=== PATIENT | female | born 1950 | race African-American/Black ===

== ENCOUNTER 2018-06-22 09:24 | Outpatient (CLI) | payer OTHER | END 2018-06-22 09:25 | disposition home or self-care (01) | LOC: DTY/OP 09:24 | PROVIDERS: ATTEND Surgery | DX: I10 Essential (primary) hypertension (principal) | CPT/HCPCS: 97802 ==

== ENCOUNTER 2018-08-24 06:42 | Outpatient (CLI) | payer MEDICARE ==
[2018-08-24 11:30] LABS: Hemoglobin A1c 5.6 % (4.0-6.0)
--- NOTE | 2018-08-24 11:40 | RAD ---
PA AND LATERAL CHEST: History: Pre op. Comparison: 04-18-03 FINDINGS: Heart size is borderline. There are some arthrosclerotic changes of the aorta. The lungs are clear of infiltrate. Surgical clips are seen along the right chest wall. IMPRESSION: No active intrathoracic disease. POS: [facility]
[2018-08-24 11:41] LABS: ALT (SGPT) 14 U/L (8-55); AST (SGOT) 24 U/L (5-34); Albumin 4.3 g/dL (3.4-4.8); Alkaline Phosphatase 78 U/L (40-150); Anion Gap 17 mmol/L (10-20); BUN (Urea Nitrogen) 25 mg/dL (9.8-20.1); Bilirubin, Direct 0.2 mg/dL (0.1-0.3); Bilirubin, Total 0.3 mg/dL (0.2-1.2); Calc. Creatinine Clearance 0 mL/min (70-130); Calcium 10.4 mg/dL (7.8-10.44); Carbon Dioxide 21 mmol/L (23-31); Chloride 108 mmol/L (98-107); Estimated GFR-MDRD 50; Globulin 4.5 g/dL (2.4-3.5); Glucose 93 mg/dL (80-115); Potassium 3.7 mmol/L (3.5-5.1); Protein, Total 8.8 g/dL (6.0-8.3); Sodium 142 mmol/L (136-145)
[2018-08-24 12:24] LABS: #Basophils 0.1 thou/uL (0.0-0.2); #Eosinphils 0.3 thou/uL (0.0-0.7); #Monocytes 0.6 thou/uL (0.11-0.59); #Neutrophils 4.7 thou/uL (1.40-6.50); %Basophils 0.7 % (0.0-1.0); %Eosinophils 3.9 % (0.0-10.0); %Lymphocytes 25.9 % (21.0-51.0); %Monocytes 8.2 % (0.0-10.0); %Neutrophils 61.4 % (42.0-75.0); Hemoglobin 10.9 g/dL (12.0-16.0); MDiff Complete? YES; Mean Corpuscular HGB CONC 32.5 g/dL (32.0-36.0); Mean Corpuscular Hemoglobin 22.9 pg (27.0-31.0); Mean Corpuscular Volume 70.6 fL (78.0-98.0); Mean Platelet Volume 11.3 fL (7.4-10.4); Microcytosis MODERATE=15-30 cells (100X) (0-5/hpf); Platelet Count 331 thou/uL (130-400); Platelet Morphology Comment Appears Adequate; Polychromasia SLIGHT = 2-3 cells (100X) (0-2/hpf); RBC Distribution Width 18.2 % (11.5-14.5); Red Blood Cell (RBC) Count 4.73 mill/uL (4.20-5.40); White Blood Cell (WBC) Count 7.6 thou/uL (4.8-10.8)
--- NOTE | 2018-08-24 21:38 | EKG ---
Test Reason : Blood Pressure : / mmHG Vent. Rate : 080 BPM Atrial Rate : 080 BPM P-R Int : 162 ms QRS Dur : 090 ms QT Int : 392 ms P-R-T Axes : 052 005 033 degrees QTc Int : 452 ms Normal sinus rhythm Nonspecific T wave abnormality Abnormal ECG When compared with ECG of 19-APR-2003 07:29, Borderline criteria for Inferior infarct are no longer Present Confirmed by MARCELINO PANDYA, SMitch ([id number]) on 08/24/2018 9:37:47 PM Referred By: SHAVON Confirmed By:DR. Diony BENSON MD
== END 2018-08-24 06:43 | disposition home or self-care (01) ==
LOC: LABBT 06:42
PROVIDERS: ATTEND Surgery
DX: Z01.818 Encounter for other preprocedural examination (principal); E66.01 Morbid (severe) obesity due to excess calories
CPT/HCPCS: 71046; 80053; 80076; 83036; 85025; 93005; 93010

== ENCOUNTER 2018-08-24 09:30 | Inpatient (IN) | payer MEDICARE ==
[2018-08-24 10:11] VITALS: BMI 48.4
[2018-09-01] MEDS ORDERED: Heparin 5,000 UNITS/ML VIAL ONE (06:14)
[2018-09-01] MEDS ORDERED: CEFAZOLIN 2 GM/50 ML BAG ONE (06:14)
[2018-09-01] MEDS ORDERED: Fentanyl 250 MCG/5 ML VIAL ONE (06:30)
[2018-09-01] MEDS ORDERED: Bupivacaine HCl 0.5%/Epinephrine 1:200,000/PF 30 ml Vial ONE (06:59)
[2018-09-01] MEDS ORDERED: SUGAMMADEX SODIUM 500 MG/5 ML VIAL ONE (08:40)
[2018-09-01] MEDS ORDERED: Promethazine HCl 25 MG/ML VIAL IM PRN ×3 (08:53→09:27)
[2018-09-01] MEDS ORDERED: hydrALAZINE 20 MG/ML VIAL SLOW IVP PRN (08:53)
[2018-09-01] MEDS ORDERED: Insulin Regular 300 UNITS/3 ML VIAL SC PRN (08:53)
[2018-09-01] MEDS ORDERED: Ondansetron PF 4 MG/2 ML Vial IVP PRN (08:53)
[2018-09-01] MEDS ORDERED: Dextrose 50% Abboject 50 ML SYRINGE SLOW IVP PRN (08:53)
[2018-09-01] MEDS ORDERED: Hydrocodone-Acetamin 15 ML UDCUP PO PRN (08:53)
[2018-09-01] MEDS ORDERED: Dextrose 5% in Water 1,000 ML IV PRN (08:53)
[2018-09-01] MEDS ORDERED: diphenhydrAMINE 50 MG/ML VIAL IVP PRN ×2 (08:53→09:27)
[2018-09-01] MEDS ORDERED: CEFAZOLIN/Water 2 GM/20 ML SYRINGE SLOW IVP SCH (09:00)
[2018-09-01] MEDS ORDERED: Ondansetron HCl/PF 4 MG/2 ML Vial IVP PRN (09:07)
[2018-09-01] MEDS ORDERED: Promethazine HCl 25 MG/ML VIAL SLOW IVP PRN (09:07)
[2018-09-01] MEDS ORDERED: Fentanyl 100 MCG/2 ML VIAL ONE (09:22)
[2018-09-01] MEDS ORDERED: Naloxone HCl 0.4 mg/ml Vial IV PRN (09:27)
[2018-09-01] MEDS ORDERED: diphenhydrAMINE 50 MG/ML VIAL IM PRN (09:27)
[2018-09-01] MEDS ORDERED: Zolpidem Tartrate 5 MG TAB PO PRN (09:27)
[2018-09-01] MEDS ORDERED: fentaNYL Citrate/PF 2,000 MCG in Sodium Chloride 0.9% 60 ML IV PRN (09:27)
[2018-09-01] MEDS ORDERED: diphenhydrAMINE 25 MG CAP PO PRN (09:27)
[2018-09-01] MEDS ORDERED: Communication Order-Pharmacy FS PRN (09:30)
--- NOTE | 2018-09-01 09:57 | OP ---
DATE OF PROCEDURE: 09/01/2018 PREOPERATIVE DIAGNOSES: Morbid obesity and hiatal hernia. PROCEDURES PERFORMED: Laparoscopic sleeve gastrectomy, hiatal hernia repair, and esophagogastroduodenoscopy. INDICATIONS: A 67-year-old female morbidly obese, who has attempted multiple weight loss programs without success. FINDINGS: She had a moderately large hiatal hernia that was repaired with posterior plication. A 38-Tongan bougie was used. DESCRIPTION OF PROCEDURE: After informed consent was obtained, the patient was taken to the operating room, given general endotracheal anesthesia. She was placed in supine position. Her abdomen was prepped and draped in usual fashion. Local anesthesia infiltrated subcutaneously and deep. A 12 mm incision was performed approximately 8 inches above the xiphoid slightly to the left. Veress needle inserted. Drop test performed. Pneumoperitoneum was created to a volume of 2 L of carbon dioxide. Utilizing a bladeless 12 mm trocar and 0-degree laparoscope, direct visual entry into abdominal cavity was performed. Pneumoperitoneum was created to a pressure of 15 mmHg. The patient then placed in steep reverse Trendelenburg position. Mark liver retractor inserted. Left lobe of liver retracted superiorly. A moderately large hiatal hernia was noted. The pylorus was identified. A 12 mm port placed on the right beneath the pylorus and two 12s placed left subcostal. The omentum was taken off the greater curvature of 5 cm from the pylorus utilizing the LigaSure. Short gastrics divided with LigaSure and left crura defined with LigaSure. The gastrophrenic ligament was opened and the right crura was also dissected out. The peritoneum was opened anteriorly and posteriorly and a posterior esophageal window was created bluntly. The 38-Tongan bougie was inserted, directed into the antrum. Then, a posterior crural plication was performed over the bougie with 0 Ethibond in the Sew-right and Ti-Knot device. Then, the bougie was further advanced into the antrum and the antrum was divided using a linear 60 mm green load stapler. Then, a gold load was used along the bougie, and a series of blues through the angle of His. Intraoperative endoscopy was performed. The video endoscope inserted under direct vision and advanced into the sleeve. The staple line inspected. There was no bleeding. Staple line then tested by inflating the new stomach with pressurized air and water. There was no air leak. Stomach decompressed. Scope removed. The remnants of the stomach removed from the abdomen through the left lateral port site. The fascia closed with 0 Vicryl suture and the GraNee needle. Hemostasis assured. Trocars and retractors removed and the skin closed with interrupted 4-0 Rapide. Dermabond applied. The patient tolerated the procedure well, transferred to Recovery in good condition. Sponge and needle count verified correct x2. Job ID: [id number]
[2018-09-01] MEDS: Enoxaparin Sodium 30 MG/0.3 ML SYRINGE SC SCH (11:46)
[2018-09-01] MEDS: 1/2 NS w/KCL 20 mEq 1,000 ML IV SCH ×2 (11:46→15:03)
[2018-09-01] MEDS: Pantoprazole 40 MG VIAL IVP SCH (11:46)
[2018-09-01] MEDS ORDERED: Rocuronium Bromide 10 MG/ML (10ML VIAL) ONE (11:52)
[2018-09-01] MEDS ORDERED: ePHEDrine 50 MG/ML VIAL ONE (11:52)
[2018-09-01] MEDS ORDERED: Lidocaine 1% PF 5 ML VIAL ONE (11:52)
[2018-09-01] MEDS ORDERED: PROPOFOL 200 MG/20 ML VIAL ONE (11:52)
[2018-09-01] MEDS ORDERED: PHENYLEPHRINE-NS 100 MCG/ML 10 ML SYRINGE ONE (11:52)
[2018-09-01] MEDS ORDERED: Ondansetron PF 4 MG/2 ML Vial ONE (11:52)
[2018-09-01] MEDS: CEFAZOLIN 2 GM/50 ML-DEXTROSE 2 GM in Premix Bag 1 BAG IVPB SCH ×2 (15:03→22:11)
[2018-09-01] MEDS: Ondansetron PF 4 MG/2 ML Vial IVP PRN (23:39)
[2018-09-02] MEDS: 1/2 NS w/KCL 20 mEq 1,000 ML IV SCH ×3 (03:20→19:04)
[2018-09-02] MEDS: Ondansetron PF 4 MG/2 ML Vial IVP PRN ×2 (07:09→20:26)
[2018-09-02 08:08] LABS: #Eosinphils 0.1 thou/uL (0.0-0.7); #Lymphocytes 1.9 thou/uL (1.20-3.40); #Monocytes 0.5 thou/uL (0.11-0.59); #Neutrophils 5.1 thou/uL (1.40-6.50); %Basophils 0.5 % (0.0-1.0); %Monocytes 6.4 % (0.0-10.0); %Neutrophils 67.2 % (42.0-75.0); Hemoglobin 10.1 g/dL (12.0-16.0); Mean Corpuscular HGB CONC 30.8 g/dL (32.0-36.0); Mean Corpuscular Hemoglobin 22.2 pg (27.0-31.0); Mean Corpuscular Volume 71.9 fL (78.0-98.0); Mean Platelet Volume 11.5 fL (7.4-10.4); Platelet Count 332 thou/uL (130-400); RBC Distribution Width 18.4 % (11.5-14.5); Red Blood Cell (RBC) Count 4.55 mill/uL (4.20-5.40); White Blood Cell (WBC) Count 7.6 thou/uL (4.8-10.8)
[2018-09-02 08:33] LABS: Anion Gap 16 mmol/L (10-20); BUN (Urea Nitrogen) 16 mg/dL (9.8-20.1); Calc. Creatinine Clearance 72 mL/min (70-130); Calcium 9.9 mg/dL (7.8-10.44); Carbon Dioxide 20 mmol/L (23-31); Chloride 104 mmol/L (98-107); Estimated GFR-MDRD 53; Glucose 84 mg/dL (80-115); Potassium 4.6 mmol/L (3.5-5.1); Sodium 135 mmol/L (136-145)
[2018-09-02] MEDS: Pantoprazole 40 MG VIAL IVP SCH (09:28)
[2018-09-02] MEDS: Enoxaparin Sodium 30 MG/0.3 ML SYRINGE SC SCH (09:28)
--- NOTE | 2018-09-02 09:52 | RAD ---
ESOPHAGRAM: History: Obesity. Bariatric surgery. FINDINGS/IMPRESSION: Single column contrast evaluation shows post-operative changes of the stomach consistent with gastric sleeve procedure. There is no evidence of obstruction or leak. Fluoro time: 0.2 minutes POS: [facility]
[2018-09-02] MEDS: Hydrocodone-Acetamin 15 ML UDCUP PO PRN ×2 (12:07→20:25)
--- NOTE | 2018-09-02 15:06 | PRG ---
DATE OF SERVICE: 09/02/2018 SUBJECTIVE: The patient states that she has been having a rough time trying to get fluids down. She has had quite a bit of nausea and is really is having difficulty in staying hydrated. OBJECTIVE: VITAL SIGNS: Temperature is 98.5, pulse 70, and blood pressure 152/60. GENERAL: She is a little lethargic, but she looks okay. HEENT: Otherwise unremarkable. ABDOMEN: Soft and nondistended. The incisions are healing well. There is no evidence of infection. LABORATORY DATA: Her white count is 7.6, hemoglobin and hematocrit 10 and 32, and platelet count 332. Her electrolytes; CO2 is 20, her creatinine is 1.23. Her swallow study was fine. ASSESSMENT: Slow recovery after sleeve gastrectomy, complicated by repair of hiatal hernia, probably additional swelling. PLAN: Recommend to continue some IV fluids. Continue to just slowly take in more fluids. When she is able to tolerate enough fluids, we will let her go home. Job ID: [id number]
[2018-09-03] MEDS: 1/2 NS w/KCL 20 mEq 1,000 ML IV SCH ×2 (01:45→10:50)
[2018-09-03] MEDS: Hydrocodone-Acetamin 15 ML UDCUP PO PRN ×2 (01:45→08:19)
[2018-09-03 08:16] VITALS: BP 156/79; TEMP 98
[2018-09-03] MEDS: Pantoprazole 40 MG VIAL IVP SCH (08:20)
[2018-09-03] MEDS: Enoxaparin Sodium 30 MG/0.3 ML SYRINGE SC SCH (08:20)
--- NOTE | 2018-09-03 12:29 | DIS ---
DATE OF ADMISSION: 09/01/2018 DATE OF DISCHARGE: 09/03/2018 DISCHARGE DIAGNOSES: Morbid obesity, hiatal hernia. PROCEDURES DURING ADMISSION: Laparoscopic sleeve gastrectomy, intraoperative esophagogastroscopy, also hiatal hernia repair and postoperative Gastrografin swallow. HOSPITAL COURSE: The patient was admitted, taken to the operating room where she underwent a laparoscopic sleeve gastrectomy and hiatal hernia repair. Postoperatively, she has done well. Her postop swallow study fine. She was started on liquids. She had some trouble staying hydrated on the 1st day. She is doing much better now. She is discharged home, tolerating liquids well. Pain controlled on p.o. medications. She is discharged on hydrocodone and Zofran. She will follow up with me in 2 weeks. Job ID: [id number]
== END 2018-09-03 11:50 | disposition home or self-care (01) | DRG 621 ==
LOC: SURG A 09-01 05:44
PROVIDERS: ADMIT Surgery; ATTEND Surgery
PROC: 0DB64Z3 Excision of Stomach, Percutaneous Endoscopic Approach, Vertical (ICD-10-PCS; principal; 2018-09-01)
PROC: 0BQT4ZZ Repair Diaphragm, Percutaneous Endoscopic Approach (ICD-10-PCS; 2018-09-01)
PROC: 0DJ08ZZ Inspection of Upper Intestinal Tract, Via Natural or Artificial Opening Endoscopic (ICD-10-PCS; 2018-09-01)
DX: E66.01 Morbid (severe) obesity due to excess calories (principal); K44.9 Diaphragmatic hernia without obstruction or gangrene; Z68.42 Body mass index [BMI] 45.0-49.9, adult
CPT/HCPCS: 36415; 36416; 74241; 80048; 85025; 88307; 88312; 94760; C9113; J0131; J0670; J1644; J1650; J2001; J2405; J2704; J3010; J3480; J3490; J7050

== ENCOUNTER 2018-11-30 10:30 | Outpatient (CLI) | payer MEDICARE ==
--- NOTE | 2018-11-30 13:00 | CT ---
CT Abdomen Pelvis W Con HISTORY: Patient has a history of diverticulitis with incision 2 weeks ago that is still weeping and causing pain.Also history of previous gastric surgery COMPARISON: 02/14/2012 exam.. FINDINGS: The lung bases are clear. The liver shows fatty change. The spleen is within normal limits of size. Pancreas and gallbladder re gions are unremarkable. A hiatal hernia is present patient is undergone a gastric sleeve procedure. Right adrenal gland is normal. There is a left adrenal mass CT numbers are indeterminate, it measures 1.9 cm most likely representing an adenoma given its stability since the previous 2011 study.. Right and left kidneys are normal in size. The infrarenal aorta is ectatic but not aneurysmal. There is a moderate amount of stool present within the left colon and transverse colon. No significant periaortic or mesenteric adenopathy. CT of pelvis performed with contrast enhancement: There is air present within the bladder there is al so asymmetric wall thickening to the left side of bladder there is a tiny soft tissue connection to the adjacent sigmoid colon in addition there is what appears to be a fistulous connection from the si gmoid colon to the skin surface just to the left of the umbilicus. There is no free fluid within the abdomen or pelvis and no signs of abscess. IMPRESSION: 1. 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 2. Hiatal hernia and gastric sleeve. 3. Left adrenal mass, it appears similar in size to the previous 02/14/2012 study.
[2018-11-30] MEDS ORDERED: Iopamidol 370 76% 100 ML VIAL ONE (13:03)
[2018-11-30] MEDS ORDERED: Iopamidol 370 76% 50 ML VIAL FS ONE (13:03)
== END 2018-11-30 10:31 | disposition home or self-care (01) ==
LOC: CT 10:30
PROVIDERS: ATTEND Surgery
DX: K57.92 Diverticulitis of intestine, part unspecified, without perforation or abscess without bleeding (principal); R39.89 Other symptoms and signs involving the genitourinary system; K44.9 Diaphragmatic hernia without obstruction or gangrene; E27.8 Other specified disorders of adrenal gland; Z98.890 Other specified postprocedural states
CPT/HCPCS: 74177; 82565; Q9967